=== PATIENT | male | born 1995 | race Caucasian/White ===

== ENCOUNTER 2022-03-21 16:17 | Outpatient (CLI) | payer OTHER | END 2022-03-21 23:59 | disposition home or self-care (01) | LOC: LAB.N 16:17 | PROVIDERS: ATTEND Nurse Practitioner | DX: Z20.822 Contact with and (suspected) exposure to COVID-19 (principal) ==

== ENCOUNTER 2022-03-21 16:51 | Outpatient (CLI) | payer OTHER ==
--- NOTE | 2022-03-22 09:25 | XRAY Report ---
PROCEDURE: Finger(s) RT INDICATIONS: CRUSHING INJURY OF R THUMB TECHNIQUE: PA hand, 2 views of the thumb acquired. COMPARISON: None. FINDINGS: Bones: No acute fractures or dislocations. No suspicious bony lesions. Postsurgical changes are see n from scaphoid fixation with an Acutrak type screw. No signs of scaphoid osteonecrosis or nonunion. Soft tissues: No suspicious soft tissue calcifications. IMPRESSION: No acute osseous abnormality. If there is clinical concern or persistent symptoms, additional imaging such as repeat radiographs or advanced imaging (e.g. CT, MRI) may be helpful for further evaluation. Reviewed by: Eric Davison MD on 03/22/2022 9:24 AM PDT Approved by: Eric Davison MD on 03/22/2022 9:24 AM PDT Station ID: [id number]
== END 2022-03-21 23:59 | disposition home or self-care (01) ==
LOC: DI.N 16:51
PROVIDERS: ATTEND Nurse Practitioner
DX: S67.01XA Crushing injury of right thumb, initial encounter (principal)

== ENCOUNTER 2022-04-02 08:00 | Outpatient (CLI) | payer OTHER | END 2022-04-04 16:56 | disposition home or self-care (01) | LOC: LAB.N 08:00 | PROVIDERS: ATTEND Physician Assistant | DX: U07.1 COVID-19 (principal) ==

== ENCOUNTER 2023-04-10 10:55 | Emergency (ER) | payer OTHER ==
[2023-04-10] MEDS ORDERED: HYDROmorphone 1 MG/ML CARPUJECT IVP STA ×2 (11:05→12:26)
--- NOTE | 2023-04-10 11:07 | ED Physician Documentation ---
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 Reportedly was up on a one-story roof and fell off. He does not remember falling and whoever dropped him off at the hospital quickly left before independent history could be taken. He complains of severe posterior headache and left hip pain. He recalls getting up this morning but does not recall any other events from the day. PD PAST MEDICAL HISTORY - Present Medications Home Medications: Ambulatory Orders Medication Instructions Recorded Confirmed No Known Home Medications 04/10/23 04/10/23 - Allergies Allergies/Adverse Reactions: Allergies Allergy/AdvReac Type Severity Reaction Status Date / Time No Known Drug Allergies Allergy Verified 04/10/23 11:04 PD ED PE NORMAL - Vitals Vital signs reviewed: Yes - General General: No acute distress, Other (Confused and appears to be in pain) - HEENT HEENT: PERRL, EOMI, Other (There is a laceration on the left occiput incompletely evaluated during exam but hemostatic) - Neck Neck: No bony TTP (But will CT given altered mental status) - Cardiac Cardiac: RRR, No murmur - Respiratory Respiratory: No respiratory distress, Clear bilaterally - Abdomen Abdomen: Other (Mild upper abdominal tenderness without surgical signs) - 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 Eye Opening: Spontaneous Motor: Obeys Commands Verbal: Confused GCS Score: 14 Results - Vitals Vitals: Vital Signs - 24 hr 04/10/23 11:01 Temperature 35 C L Heart Rate 77 Respiratory 16 Rate Blood Pressure 148/79 H O2 Saturation 93 Oxygen O2 Source Room air - Labs Labs: Laboratory Tests 04/10/23 04/10/23 04/10/23 11:13 11:13 11:13 WBC 14.8 H RBC 4.79 Hgb 14.4 Hct 44.5 MCV 92.9 MCH 30.1 MCHC 32.4 RDW 13.2 Plt Count 275 MPV 10.3 Neut # (Auto) 8.9 H Lymph # (Auto) 4.2 H Adair # (Auto) 0.9 Eos # (Auto) 0.2 Baso # (Auto) 0.1 Absolute Nucleated RBC 0.00 Nucleated RBC % 0.0 PT 11.0 INR 1.0 Sodium Potassium Chloride Carbon Dioxide Anion Gap BUN Creatinine Estimated GFR (MDRD) Glucose Calcium Total Bilirubin AST ALT Alkaline Phosphatase Total Protein Albumin Globulin Albumin/Globulin Ratio Lipase Ethyl Alcohol Blood Type O NEGATIVE Blood Type Recheck Antibody Screen NEGATIVE 04/10/23 04/10/23 11:13 11:32 WBC RBC Hgb Hct MCV MCH MCHC RDW Plt Count MPV Neut # (Auto) Lymph # (Auto) [place] # (Auto) Eos # (Auto) Baso # (Auto) Absolute Nucleated RBC Nucleated RBC % PT INR Sodium 139 Potassium 3.4 L Chloride 102 Carbon Dioxide 30 Anion Gap 7.0 BUN 14 Creatinine 1.0 Estimated GFR (MDRD) 91 Glucose 150 H Calcium 9.5 Total Bilirubin 0.4 AST 58 H ALT 51 Alkaline Phosphatase 75 Total Protein 7.9 Albumin 4.6 Globulin 3.3 Albumin/Globulin Ratio 1.4 Lipase 176 H Ethyl Alcohol < 5.0 Blood Type Blood Type Recheck O NEGATIVE Antibody Screen - Rads (name of study) X-rays of the chest, right shoulder, and left hip were unremarkable. Relevant Findings:: Final report received, EMP independent interpretation of test CT chest abdomen and pelvis showing bibasilar pulmonary contusions, left L1-L4 transverse process fractures, possible grade 3 splenic laceration+ Relevant Findings:: Final report received, EMP independent interpretation of test Procedures - Laceration (location) L scalp Length in cm: 3 Wound type: Stellate, Irregular Anesthesia: Lidocaine 1% with epi Wound preparation: Irrigated copiously NS Skin layer closure: [place] (4) Other: Patient tolerated well, No complications, Neurovascular intact, Tetanus UTD PD Medical Decision Making - ED course ED course: 27-year-old gentleman presents after a fall off of a roof with clear concussive symptoms with altered mental status. Also prominent right shoulder and left hip pain. Plain films were negative but CT [place] scan demonstrated bibasilar pulmonary contusions and left L1-L4 transverse process fractures with possible splenic Laceration. Given the above decision was made to transfer for trauma center for evaluation. Note made that he does not have any left upper quadrant pain or tenderness. Therefore my suspicion for splenic laceration is lower. He did have a occipital scalp laceration that was closed with garfield after irrigation. With patient's permission I did update his father who is coming up from the [facility] and advised him to go to [place] instead. Departure - Departure Disposition: 02 Transfer Acute Care Hosp Clinical Impression: Fall from height of greater than 3 feet, Multiple transverse process fractures Concussion Qualifiers: Encounter type: initial encounter Loss of consciousness presence/duration: with LOC of 30 min or less Qualified Code(s): S06.0X1A - Concussion with loss of consciousness of 30 minutes or less, initial encounter Pulmonary contusion Qualifiers: Encounter type: initial encounter Laterality: bilateral Qualified Code(s): S27.322A - Contusion of lung, bilateral, initial encounter Splenic laceration Qualifiers: Encounter type: initial encounter Qualified Code(s): S36.039A - Unspecified laceration of spleen, initial encounter Scalp laceration Qualifiers: Encounter type: initial encounter Qualified Code(s): S01.01XA - Laceration without foreign body of scalp, initial encounter Condition: Serious
[2023-04-10 11:23] LABS: BASOPHILS # (AUTO) 0.1 10^3/uL (0.0-0.1); BASOPHILS % (AUTO) 0.4 %; EOSINOPHILS # (AUTO) 0.2 10^3/uL (0.0-0.7); EOSINOPHILS % (AUTO) 1.2 %; HCT - HEMATOCRIT 44.5 % (42.0-52.0); HGB - HEMOGLOBIN 14.4 g/dL (14.0-18.0); LYMPHOCYTES # (AUTO) 4.2 10^3/uL (1.5-3.5); LYMPHOCYTES % (AUTO) 28.6 %; MEAN CORPUSCULAR HEMOGLOBIN 30.1 pg (27.0-31.0); MEAN CORPUSCULAR HGB CONC 32.4 g/dL (32.0-36.0); MEAN CORPUSCULAR VOLUME 92.9 fL (80.0-94.0); MEAN PLATELET VOLUME 10.3 fL (7.4-11.4); MONOCYTES # (AUTO) 0.9 10^3/uL (0.0-1.0); MONOCYTES % (AUTO) 5.8 %; NEUTROPHILS # (AUTO) 8.9 10^3/uL (1.5-6.6); NEUTROPHILS % (AUTO) 60.1 %; PLT - PLATELET COUNT 275 10^3/uL (130-450); RED BLOOD COUNT 4.79 10^6/uL (4.70-6.10); RED CELL DISTRIBUTION WIDTH 13.2 % (12.0-15.0); WHITE BLOOD COUNT 14.8 x10^3/uL (4.8-10.8)
[2023-04-10] MEDS ORDERED: fentaNYL 100 MCG/2 ML VIAL IVP STA (11:31)
[2023-04-10] MEDS ORDERED: iohexoL-300 100 ML VIAL ONE (11:33)
[2023-04-10 11:36] LABS: ALBUMIN 4.6 g/dL (3.2-5.5); ALBUMIN/GLOBULIN RATIO 1.4 (1.0-2.2); ALKALINE PHOSPHATASE 75 IU/L (42-121); ALT ALANINE AMINOTRANSFERASE 51 IU/L (10-60); AST ASPARTATE AMINOTRANSFERASE 58 IU/L (10-42); BILIRUBIN,TOTAL 0.4 mg/dL (0.2-1.0); BUN - BLOOD UREA NITROGEN 14 mg/dL (6-20); CALCIUM 9.5 mg/dL (8.5-10.3); CARBON DIOXIDE - CO2 30 mmol/L (21-32); CHLORIDE 102 mmol/L (101-111); ETOH - ETHANOL < 5.0 mg/dL; GFR - MDRD 91 (>89); GLUCOSE 150 mg/dL (70-100); LIPASE 176 U/L (22-51); POTASSIUM 3.4 mmol/L (3.5-5.0); SODIUM 139 mmol/L (135-145); TOTAL PROTEIN 7.9 g/dL (6.7-8.2)
--- NOTE | 2023-04-10 11:53 | XRAY Report ---
PROCEDURE: Chest 1 View X-Ray INDICATIONS: fall from height TECHNIQUE: One view of the chest was acquired. COMPARISON: None. FINDINGS: Surgical changes and devices: None. Lungs and pleura: No pleural effusions or pneumothorax. Lungs are clear. Mediastinum: Mediastinal contours appear normal. Heart size is normal. Bones and chest wall: No suspicious bony lesions. Overlying soft tissues appear unremarkable. IMPRESSION: No acute cardiopulmonary process. Reviewed by: Deandre Whitehead MD on 04/10/2023 11:52 AM PDT Approved by: Deandre Whitehead MD on 04/10/2023 11:52 AM PDT Station ID: [id number]
--- NOTE | 2023-04-10 11:54 | XRAY Report ---
PROCEDURE: Hip w/Pelvis 2-3V LT INDICATIONS: fall from height, hip pain TECHNIQUE: AP pelvis with lateral view(s) of the left hip(s). COMPARISON: None. FINDINGS: Bones: No fractures or dislocations. No suspicious bony lesions. Soft tissues: No suspicious soft tissue calcifications or masses. IMPRESSION: No acute bony abnormality. If there remains a high clinical concern for fracture, including inability to bear weight, consider cross-sectional imaging to exclude an occult fracture. Reviewed by: Deandre Whitehead MD on 04/10/2023 11:53 AM PDT Approved by: Deandre Whitehead MD on 04/10/2023 11:53 AM PDT Station ID: [id number]
--- NOTE | 2023-04-10 11:55 | XRAY Report ---
PROCEDURE: Shoulder 3 View RT INDICATIONS: FALL FROM HEIGHT, RIGHT SHOULDER PAIN TECHNIQUE: 3 views of the shoulder were acquired. COMPARISON: None. FINDINGS: Bones: No fractures or dislocations. No suspicious bony lesions. Visualized ribs appear intact. Soft tissues: No suspicious soft tissue calcifications. IMPRESSION: No acute bony abnormality. If pain persists with conservative management, consider repeat radiographs in 10-14 days or cross-sectional imaging. Reviewed by: Deandre Whitehead MD on 04/10/2023 11:53 AM PDT Approved by: Deandre Whitehead MD on 04/10/2023 11:53 AM PDT Station ID: [id number]
[2023-04-10] MEDS ORDERED: iohexoL-300 100 ML VIAL IVP ONE (12:08)
--- NOTE | 2023-04-10 12:14 | CT Report ---
PROCEDURE: HEAD WO INDICATIONS: Head trauma, mod-severe TECHNIQUE: Noncontrast 4.5 mm thick angled axial sections acquired from the foramen magnum to the vertex. For r adiation dose reduction, the following was used: automated exposure control, adjustment of mA and/or kV according to patient size. COMPARISON: None. FINDINGS: Image quality: Excellent. CSF spaces: Basal cisterns are patent. No extra-axial fluid collections. Ventricles are normal in size and shape. Brain: No midline shift. No intracranial masses or hemorrhage. Garcia-white matter interface is norm al. Skull and face: Calvarium and visualized facial bones are intact, without suspicious lesions. Sinuses: Visualized sinuses and mastoids are clear. IMPRESSION: No acute intracranial pathology Reviewed by: Deandre Whitehead MD on 04/10/2023 12:13 PM PDT Approved by: Deandre Whitehead MD on 04/10/2023 12:13 PM PDT Station ID: [id number]
--- NOTE | 2023-04-10 12:15 | CT Report ---
PROCEDURE: CERVICAL SPINE WO INDICATIONS: Neck trauma, midline tenderness TECHNIQUE: Noncontrast 3 mm thick sections acquired from the skull base to the T4 level. Sagittal and coronal r eformats were then constructed. For radiation dose reduction, the following was used: automated exp osure control, adjustment of mA and/or kV according to patient size. COMPARISON: None. FINDINGS: Image quality: Excellent. Bones: No fractures or dislocations. Visualized superior ribs are intact. Soft tissues: Prevertebral soft tissues are normal in thickness. No paravertebral hematomas. No ap ical pneumothoraces. IMPRESSION: No evidence acute cervical fracture or dislocation. Reviewed by: Deandre Whitehead MD on 04/10/2023 12:14 PM PDT Approved by: Deandre Whitehead MD on 04/10/2023 12:14 PM PDT Station ID: [id number]
[2023-04-10] MEDS ORDERED: KETOROLAC 15 MG/ML VIAL IVP STA (12:26)
--- NOTE | 2023-04-10 12:28 | CT Report ---
PROCEDURE: CHEST W INDICATIONS: Chest trauma, blunt, high energy CONTRAST: 100ml omnipaque 300 TECHNIQUE: After the administration of intravenous contrast, 1 mm axial images were acquired from the pulmonary apices through the posterior costophrenic angles. Axial 5 mm soft tissue kernel reconstructions were performed as well as 8 mm axial MIP and coronal and sagittal 5 mm reformations. For radiation dose reduction, the following was used: automated exposure control, adjustment of mA and/or kV according to patient size. COMPARISON: CT of the abdomen and pelvis from the same date. FINDINGS: Image quality: Excellent. Lungs and pleura: Subtle consolidation in the medial and posterior right lower lobe and diffusely in the left lower lobe. Trace left basilar pneumothorax. Reference image 123/3. Extremely trace minimal right basilar pneumothorax. Reference image 194/3. No pleural effusions. No pneumothorax. No suspici ous pulmonary nodules which require follow up. Mediastinum: Heart size is normal. No pericardial effusions. No mediastinal adenopathy by size criter ia. No large vessel abnormality. Chest wall and lower neck: Thyroid is unremarkable. No axillary or supraclavicular adenopathy by size . Bones: Left transverse process fractures of L1 and L2. On the corresponding CT of the abdomen and pel vis, there are left transverse process fractures of L3 and L4, as well. Upper Abdomen: There is laceration involving the spleen,, with hematoma measuring slightly greater th an 5 cm in maximum diameter.. IMPRESSION: 1. There are left transverse process fractures of L1, L2, L3, and L4. 2. Subtle consolidation in the medial and posterior right lower lobe and diffusely in the left lower lobe. Findings likely represent pulmonary contusions. 3. Remarkably tiny bibasilar pneumothoraces. 4. AST Grade 3 splenic laceration. Comment: Suggest serial follow-up chest x-rays regarding possible development of larger pneumothorace s. Reviewed by: Deandre Whitehead MD on 04/10/2023 12:27 PM PDT Approved by: Deandre Whitehead MD on 04/10/2023 12:27 PM PDT Station ID: [id number]
[2023-04-10] MEDS ORDERED: LIDOCAINE 1%-EPI 1:100000 20 ML MDV SUBQ STA (12:31)
--- NOTE | 2023-04-10 12:41 | CT Report ---
PROCEDURE: ABDOMEN/PELVIS W INDICATIONS: Abdominal trauma, blunt CONTRAST: 100ml omnipaque 300 TECHNIQUE: After the administration of intravenous contrast, 5 mm thick sections acquired from the diaphragms to the symphysis. 5 mm thick coronal and sagittal reformats were acquired. For radiation dose reducti on, the following was used: automated exposure control, adjustment of mA and/or kV according to luis ent size. COMPARISON: CT chest from the same date FINDINGS: Image quality: Excellent. Lung bases and heart: Subtle bibasilar infiltrates, left greater than right, likely representing bila teral pulmonary contusions in the setting of acute trauma. Liver: No solid mass. Gallbladder and biliary tree: No radiopaque stones or wall thickening. No biliary dilation. Spleen: There is vague low density in the spleen which is more apparent on the CT chest images than t he CT abdomen images. It may potentially be related to the lack of elevation of the arms, with associ ated artifact. However, it may potentially be a splenic laceration, which could be slightly greater t whitney 5 cm, or class III. Pancreas: No pancreatic ductal dilation. Adrenals: No adrenal nodule. Kidneys and ureters: No hydronephrosis. No renal cystic lesion which requires follow up. No solid mas s. Bowel and peritoneum: No bowel distension. No pathologic free fluid. Lymph nodes: No central or retroperitoneal adenopathy. Vessels: No infrarenal aortic aneurysm. PELVIS Reproductive organs: Unremarkable. Bladder: No abnormal wall thickening, accounting for underdistension. Pelvic lymph nodes: No pelvic adenopathy by size criteria. Bones: Nondisplaced fractures of the left transverse processes of L1, L2, L3, and L4. Prominent Schmo rl's nodes involving L3 and L4 inferior endplates. No compression fractures. Other: No significant ventral or inguinal hernia. IMPRESSION: 1. Bibasilar pulmonary contusions, left greater than right. 2. Left transverse process fractures of L1-L4. 3. Question artifact versus grade 3 splenic laceration. Comment: Consider splenic ultrasound for further evaluation of the spleen. Above discussed with Redd Danielson MD at the time of dictation on 04/10/2023 at 1233 hours. Reviewed by: Deandre Whitehead MD on 04/10/2023 12:40 PM PDT Approved by: Deandre Whitehead MD on 04/10/2023 12:40 PM PDT Station ID: [id number]
[2023-04-10 15:05] VITALS: BP 151/88
== END 2023-04-10 15:19 | disposition short-term general hospital (02) ==
LOC: ED 10:55
DX: S01.01XA Laceration without foreign body of scalp, initial encounter (principal); S06.0X1A Concussion with loss of consciousness of 30 minutes or less, initial encounter; S27.322A Contusion of lung, bilateral, initial encounter; S36.039A Unspecified laceration of spleen, initial encounter; S32.019A Unspecified fracture of first lumbar vertebra, initial encounter for closed fracture; S32.029A Unspecified fracture of second lumbar vertebra, initial encounter for closed fracture; S32.039A Unspecified fracture of third lumbar vertebra, initial encounter for closed fracture; S32.049A Unspecified fracture of fourth lumbar vertebra, initial encounter for closed fracture; W17.89XA Other fall from one level to another, initial encounter; Y99.0 Civilian activity done for income or pay
CPT/HCPCS: 12002; 36415; 70450; 71045; 71260; 72125; 73030; 73502; 74177; 80053; 80320; 83690; 85025; 85610; 86850; 86900; 86901; 96374; 96375; 96376; 99285; J1170; Q9967